=== PATIENT | male | born 1985 | race African-American/Black ===

== ENCOUNTER 2016-10-22 19:37 | Emergency (ER) | payer MEDICAID ==
[~2016-10-22] VITALS: Ht 180.3 cm; Wt 113.4 kg
[2016-10-22 19:53] VITALS: BP 151/96
--- NOTE | 2016-10-22 22:40 | NUR ---
PATIENT LEFT WITHOUT BEING SEEN BY DR. Chang. NO FURTHER CARE PROVIDED FOR PATIENT.
== END 2016-10-22 22:40 | disposition left against medical advice (07) ==
LOC: MED 19:37
DX: Z76.0 Encounter for issue of repeat prescription (principal); Z53.21 Procedure and treatment not carried out due to patient leaving prior to being seen by health care provider

== ENCOUNTER 2019-03-03 23:36 | Emergency (ER) | payer OTHER, MEDICAID ==
[~2019-03-03] VITALS: Ht 180.3 cm; Wt 87.5 kg
[2019-03-03 23:41] VITALS: BP 130/76
--- NOTE | 2019-03-03 23:46 | NUR ---
PT TRIAGED, SENT BACK TO LOBBY AWAITING FOR BED
--- NOTE | 2019-03-04 00:08 | NUR ---
PT TO ER BED 5
--- NOTE | 2019-03-04 00:09 | NUR ---
33/M C/O "TAKING ILLICIT SUBSTANCE." PT DID NOT WANT TO STATE WHAT HE TOOK. STATED HE "WANTS TO GO TO REHAB." PT REPORTS 5/10 HEADACHE. PT AWAKE AND ALERT, SKIN NORMAL COLOR WARM AND DRY, RR EVEN AND UNLABORED. HX HTN RX PRAZOSIN
--- NOTE | 2019-03-04 00:18 | NUR ---
Dr. Slater examining patient.
--- NOTE | 2019-03-04 00:30 | NUR ---
TELEPSYCH INITIATED PER DR. Cate PORTER
[2019-03-04 00:50] LABS: BASOPHILS % (AUTO) 0.1 % (0.0-2.0); EOSINOPHILS # (AUTO) 0.2 K/uL (0-0.4); EOSINOPHILS % (AUTO) 2.8 % (0.0-4.0); HEMATOCRIT 40.4 % (36-52); HEMOGLOBIN 13.4 g/dL (12.0-18.0); LYMPHOCYTES # (AUTO) 1.5 K/uL (2.0-11.5); LYMPHOCYTES % (AUTO) 22.7 % (20.5-51.1); MEAN CORPUSCULAR HEMOGLOBIN 30 pg (27-31); MEAN CORPUSCULAR HGB CONC 33 g/dL (33-37); MEAN CORPUSCULAR VOLUME 90.5 fL (80-94); MONOCYTES # (AUTO) 0.6 K/uL (0.8-1.0); MONOCYTES % (AUTO) 9.8 % (1.7-9.3); NEUTROPHILS # (AUTO) 4.3 K/uL (1.8-7.7); NEUTROPHILS % (AUTO) 64.6 % (42.2-75.2); PLATELET COUNT (AUTO) 177 K/uL (140-450); RED BLOOD CELL COUNT(AUTO) 4.46 MIL/uL (4.20-6.10); RED CELL DISTRIBUTION WIDTH 12.9 % (11.6-13.7); WHITE BLOOD COUNT (AUTO) 6.7 K/uL (4.8-10.8)
[2019-03-04 01:07] LABS: BARBITURATE, URINE NEG. ng/ml (NEG <=200); BENZODIAZEPINE, URINE NEG. ng/mL (NEG <=200); CANNABINOID, URINE POS. ng/mL (NEG <=50); COCAINE, URINE NEG. ng/mL (NEG <=300); OPIATE, URINE NEG. ng/mL (NEG <=2000); PHENCYCLIDINE SCREEN,URINE NEG. ng/mL (NEG <=25)
[2019-03-04 01:08] LABS: ANION GAP 6.6 (8-16); CHLORIDE 104 mmol/L (98-107); CREATININE 1.2 mg/dL (0.7-1.3); GFR ARICAN-AMERICAN 89 mL/min (>90); GLUCOSE 87 mg/dL (74-106); POTASSIUM 3.6 mmol/L (3.5-5.1); SODIUM SERUM 140 mmol/L (136-145); UREA NITROGEN, BLOOD 12 mg/dL (7-18)
[2019-03-04 01:14] LABS: ALBUMIN 3.3 g/dL (3.4-5.0); ASPARTATE AMINOTRANSFERASE 29 U/L (15-37); TOTAL BILIRUBIN 0.3 mg/dL (0.0-1.0)
[2019-03-04 01:28] LABS: ACETAMINOPHEN < 0.5 ug/ml (10-30); SALICYLATE < 2.8 mg/dL (2.8-20.0)
--- NOTE | 2019-03-04 01:30 | NUR ---
PT RESTING IN BED COMFORTABLY. VSS. WILL CONTINUE TO MONITOR.
--- NOTE | 2019-03-04 01:53 | NUR ---
SPOKE TO PSYCHIATRIST DR. LEWIS
--- NOTE | 2019-03-04 01:54 | NUR ---
TELEPSYCH DR. LEWIS SPEAKING WITH PATIENT VIA REMOTE COMMUNICATION
[2019-03-04 01:57] LABS: APPEARANCE,URINE CLEAR (CLEAR); BILIRUBIN,URINE NEGATIVE (NEGATIVE); BLOOD, URINE NEGATIVE (NEGATIVE); COLOR,URINE YELLOW (YELLOW); LEUKOCYTE ESTERASE ,URINE NEGATIVE (NEGATIVE); NITRITE, URINE NEGATIVE (NEGATIVE); UGLUCOSE NEGATIVE (NEGATIVE)
--- NOTE | 2019-03-04 03:30 | NUR ---
PT RESTING IN BED WITH EYES CLOSED. ALL NEEDS MET AT THIS TIME. WILL CONTINUE TO MONITOR.
[2019-03-04 04:10] VITALS: BP 142/72
--- NOTE | 2019-03-04 04:10 | NUR ---
Patient discharged with v/s stable. Written and verbal after care instructions given and explained. Patient verbalized understanding. Ambulatory with steady gait. All questions addressed prior to discharge. Advised to follow up with PMD.
== END 2019-03-04 04:10 | disposition home or self-care (01) ==
LOC: MED 23:36
DX: F12.10 Cannabis abuse, uncomplicated (principal); Z88.8 Allergy status to other drugs, medicaments and biological substances
CPT/HCPCS: 36415; 80053; 80305; 81003; 85025; 99283; G0480; G0482

== ENCOUNTER 2019-10-20 01:20 | Emergency (ER) | payer OTHER, MEDICAID ==
[~2019-10-20] VITALS: Ht 180.3 cm; Wt 81.6 kg
[2019-10-20 01:39] VITALS: BP 122/72
--- NOTE | 2019-10-20 01:39 | NUR ---
See complete assessment.
--- NOTE | 2019-10-20 01:40 | NUR ---
PT TO BED 4. PT CARE TO [facility]. DR STRAUSS AT THE BEDSIDE EXAMINING THE PT.
[2019-10-20 02:12] VITALS: BP 122/72
--- NOTE | 2019-10-20 03:06 | NUR ---
PT DOES NOT WANNA GET UP AND ERMD MADE AWARE. ADVISED TO LET PT SLEEP FOR AT LEAST ANOTHER HOUR.
== END 2019-10-20 04:13 | disposition home or self-care (01) ==
LOC: MED 01:20
DX: I10 Essential (primary) hypertension (principal); F17.210 Nicotine dependence, cigarettes, uncomplicated; Z02.89 Encounter for other administrative examinations
CPT/HCPCS: 99281